=== PATIENT | male | born 1950 | race Caucasian/White ===

== ENCOUNTER 2019-12-05 13:52 | Inpatient (IN) | payer OTHER, MEDICARE ==
[~2019-12-05] VITALS: Ht 188 cm; Wt 122.9 kg
[2019-12-05 14:06] VITALS: BP_SYST 138
[2019-12-05 14:44] LABS: BASOPHILS # (AUTO) 0.1 K/uL (0.0-0.2); BASOPHILS % (AUTO) 0.5 % (0.0-2.0); EOSINOPHILS # (AUTO) 0.1 K/uL (0.0-0.4); EOSINOPHILS % (AUTO) 0.8 % (0.0-4.0); HEMATOCRIT 38.9 % (36-54); LYMPHOCYTES # (AUTO) 1.5 K/uL (1.0-5.5); LYMPHOCYTES % (AUTO) 10.9 % (20.5-51.5); MEAN CORPUSCULAR HEMOGLOBIN 22 pg (27-31); MEAN CORPUSCULAR HGB CONC 30 % (32-36); MEAN CORPUSCULAR VOLUME 72 fL (79.0-98.0); MONOCYTES % (AUTO) 7.3 % (1.7-9.3); NEUTROPHILS # (AUTO) 11.1 K/uL (1.8-7.7); NEUTROPHILS % (AUTO) 80.5 % (40.0-70.0); PLATELET COUNT (AUTO) 413 K/uL (130-430); RED BLOOD CELL COUNT(AUTO) 5.37 MIL/uL (4.2-6.2); RED CELL DISTRIBUTION WIDTH 20.8 % (9.0-15.0); WHITE BLOOD COUNT (AUTO) 13.8 K/uL (4.8-10.8)
[2019-12-05 14:47] LABS: HEMOGLOBIN 11.8 g/dL (14.0-18.0)
[2019-12-05 14:56] LABS: ANION GAP 15 (5-15); CALCIUM 8.5 mg/dL (8.4-11.0); CHLORIDE 99 mmol/L (98-107); CREATININE 0.97 mg/dL (0.55-1.30); GLUCOSE 112 mg/dL (70-99); POTASSIUM 3.7 mmol/L (3.5-5.1); SODIUM SERUM 136 mmol/L (136-145); UREA NITROGEN, BLOOD 20 mg/dL (8-21)
[2019-12-05 15:02] LABS: ALANINE AMINOTRANSFERASE 27 U/L (12-78); ALBUMIN 3.9 g/dL (3.4-4.8); ASPARTATE AMINOTRANSFERASE 20 U/L (10-37); TOTAL BILIRUBIN 0.9 mg/dL (0.0-1.0)
[2019-12-05 15:05] LABS: ACETAMINOPHEN < 1 ug/mL (1-30); ALCOHOL, BLOOD < 3 mg/dL (<10)
[2019-12-05 15:51] LABS: BILIRUBIN,URINE NEGATIVE (NEGATIVE); BLOOD, URINE 3+ (NEGATIVE); COLOR,URINE YELLOW (YELLOW); GLUCOSE,URINE NEGATIVE (NEGATIVE); KETONES,URINE 2+ (NEGATIVE); LEUKOCYTE ESTERASE ,URINE TRACE (NEGATIVE); NITRITE, URINE NEGATIVE (NEGATIVE); PH,URINE 5.5 (5.0-8.0); PROTEIN URINE 1+ (NEGATIVE)
[2019-12-05 16:01] LABS: CLARITY/URINE HAZY (CLEAR)
[2019-12-05 16:11] LABS: BACTERIA,URINE FEW /HPF (None Seen); RBC,URINE 50-80 /HPF (0-3)
[2019-12-05 16:12] LABS: MUCUS,URINE 1+ /LPF (None Seen)
[2019-12-05 16:14] LABS: BARBITURATE, URINE NEGATIVE (NEG <=200); METHAMPHETAMINES SCREEN,URINE NEGATIVE (NEG <=500); URINE AMPHETAMINE NEGATIVE (NEG <=500); URINE METHADONE NEGATIVE (NEG <=200)
[2019-12-05 16:15] LABS: BENZODIAZEPINE, URINE POSITIVE (NEG <=150); CANNABINOID, URINE NEGATIVE (NEG <=50); COCAINE, URINE NEGATIVE (NEG <=150); OPIATE, URINE POSITIVE (NEG <=100); PHENCYCLIDINE SCREEN,URINE NEGATIVE (NEG <=25); UR TRICYCLIC ANTIDEPRESSANTS NEGATIVE (NEG <=300); URINE OXYCODONE SCREEN NEGATIVE (NEG <=100); URINE PROPOXYPHENE SCREEN NEGATIVE (NEG <=300)
[2019-12-05] MEDS ORDERED: NS 500 ML IV ONE (16:45)
[2019-12-05] MEDS ORDERED: cefTRIAXone 1 GM IVPB PREMIX 50 ML IV ONE (16:45)
[2019-12-05] MEDS ORDERED: cefTRIAXone 1 GM in LIDOCAINE 1%, 20 ML MDV 2.1 ML IM ONE (17:00)
[2019-12-05] MEDS ORDERED: cefTRIAXone 1 GM VIAL IM ONE (17:00)
[2019-12-05] MEDS ORDERED: LORazepam 2 MG/ML VIAL IVP ONE (17:15)
[2019-12-05] MEDS ORDERED: ACET-2165 PO (17:43)
[2019-12-05] MEDS ORDERED: ALPR0.5T PO (17:43)
[2019-12-05] MEDS ORDERED: AMLO5TAB4 PO (17:43)
[2019-12-05] MEDS ORDERED: dulcolax suppository RC (17:46)
[2019-12-05 17:55] LABS: CHOLESTEROL 126 mg/dL (<200); HDL CHOLESTEROL 38 mg/dL (>45); LDL CHOLESTEROL 77 mg/dL (<100); TRIGLYCERIDES 60 mg/dL (30-150)
[2019-12-05] MEDS ORDERED: HYDR-4274 PO (18:16)
[2019-12-05] MEDS ORDERED: PRO40 PO (18:16)
[2019-12-05] MEDS ORDERED: SER25 PO (18:16)
[2019-12-05] MEDS ORDERED: APIX5TAB4 PO (18:16)
[2019-12-05] MEDS ORDERED: LACT10SO6 PO (18:16)
[2019-12-05] MEDS ORDERED: ASCO500T20 PO (18:16)
[2019-12-05] MEDS ORDERED: MOM PO (18:16)
[2019-12-05] MEDS ORDERED: NACL 0.9% 1,000 ML IV ONE (18:30)
[2019-12-05] MEDS ORDERED: MILK OF MAGNESIA 30 ML UDC PO PRN (19:30)
[2019-12-05] MEDS ORDERED: levETIRAcetam 1,000 MG IV BAG 100 ML IV ONE (19:30)
[2019-12-05] MEDS ORDERED: ACETAMINOPHEN 325 MG TABLET PO PRN (19:30)
[2019-12-05] MEDS ORDERED: LORazepam 2 MG/ML VIAL IVP PRN (19:30)
[2019-12-05 20:47] VITALS: BP_SYST 118
[2019-12-05] MEDS: ASCORBIC ACID 500 MG TABLET PO SCH (23:04)
[2019-12-05] MEDS: QUEtiapine FUMARATE 25 MG TABLET PO SCH (23:04)
[2019-12-05] MEDS: PANTOPRAZOLE SODIUM 40 MG TAB PO SCH (23:04)
[2019-12-06 00:44] VITALS: BP_SYST 130
[2019-12-06] MEDS: HYDROcodone/ACETAMIN 10-325 MG TAB PO PRN ×3 (05:55→22:11)
[2019-12-06 06:30] LABS: BASOPHILS % (AUTO) 0.4 % (0.0-2.0); EOSINOPHILS # (AUTO) 0.2 K/uL (0.0-0.4); EOSINOPHILS % (AUTO) 1.9 % (0.0-4.0); HEMATOCRIT 34.5 % (36-54); HEMOGLOBIN 10.5 g/dL (14.0-18.0); LYMPHOCYTES # (AUTO) 1.4 K/uL (1.0-5.5); LYMPHOCYTES % (AUTO) 13.6 % (20.5-51.5); MEAN CORPUSCULAR HEMOGLOBIN 22 pg (27-31); MEAN CORPUSCULAR HGB CONC 30 % (32-36); MEAN CORPUSCULAR VOLUME 72 fL (79.0-98.0); MONOCYTES # (AUTO) 0.7 K/uL (0.0-1.0); MONOCYTES % (AUTO) 6.8 % (1.7-9.3); NEUTROPHILS # (AUTO) 7.8 K/uL (1.8-7.7); NEUTROPHILS % (AUTO) 77.3 % (40.0-70.0); PLATELET COUNT (AUTO) 314 K/uL (130-430); RED CELL DISTRIBUTION WIDTH 20.6 % (9.0-15.0); WHITE BLOOD COUNT (AUTO) 10.1 K/uL (4.8-10.8)
[2019-12-06 08:55] LABS: ALANINE AMINOTRANSFERASE 22 U/L (12-78); ALBUMIN 3.2 g/dL (3.4-4.8); ANION GAP 12 (5-15); ASPARTATE AMINOTRANSFERASE 18 U/L (10-37); CALCIUM 8.3 mg/dL (8.4-11.0); CHLORIDE 101 mmol/L (98-107); CREATININE 0.78 mg/dL (0.55-1.30); GLUCOSE 93 mg/dL (70-99); POTASSIUM 3.5 mmol/L (3.5-5.1); SODIUM SERUM 136 mmol/L (136-145); THYROID STIMULATING HORMONE 1.12 uIu/mL (0.34-4.82); TOTAL BILIRUBIN 0.7 mg/dL (0.0-1.0); UREA NITROGEN, BLOOD 19 mg/dL (8-21)
[2019-12-06] MEDS: ASCORBIC ACID 500 MG TABLET PO SCH ×2 (10:27→20:27)
[2019-12-06] MEDS: PANTOPRAZOLE SODIUM 40 MG TAB PO SCH ×2 (10:27→20:28)
[2019-12-06] MEDS: amLODIPine BESYLATE 5 MG TABLET PO SCH ×2 (10:31→20:27)
[2019-12-06 12:00] VITALS: BP_SYST 140
[2019-12-06] MEDS: cefTRIAXone 1 GM in D5W 50 ML IV SCH (13:45)
[2019-12-06 17:23] VITALS: BP_SYST 131
[2019-12-06 20:00] VITALS: BP_SYST 136
[2019-12-06] MEDS: ALPRAZolam 0.25 MG TABLET PO PRN (20:28)
[2019-12-06] MEDS: QUEtiapine FUMARATE 25 MG TABLET PO SCH (20:28)
[2019-12-07 01:19] VITALS: BP_SYST 116
[2019-12-07] MEDS: HYDROcodone/ACETAMIN 10-325 MG TAB PO PRN ×3 (06:22→23:14)
[2019-12-07] MEDS: amLODIPine BESYLATE 5 MG TABLET PO SCH ×2 (08:52→21:43)
[2019-12-07] MEDS: PANTOPRAZOLE SODIUM 40 MG TAB PO SCH ×2 (08:52→21:42)
[2019-12-07] MEDS: clonazePAM 0.5 MG TABLET PO SCH ×2 (08:52→21:43)
[2019-12-07] MEDS: ASCORBIC ACID 500 MG TABLET PO SCH ×2 (08:52→21:42)
[2019-12-07 08:57] VITALS: BP_SYST 142
[2019-12-07] MEDS: ALPRAZolam 0.25 MG TABLET PO PRN (11:25)
[2019-12-07] MEDS: cefTRIAXone 1 GM in D5W 50 ML IV SCH (11:25)
[2019-12-07 12:15] VITALS: BP_SYST 144
[2019-12-07] MEDS ORDERED: MILK OF MAGNESIA 30 ML UDC PO ONE (12:45)
[2019-12-07] MEDS ORDERED: DOCUSATE SODIUM 250 MG CAPSULE PO ONE (12:45)
[2019-12-07 16:20] VITALS: BP_SYST 149
[2019-12-07] MEDS ORDERED: ACETAMINOPHEN 650 MG/20.3 ML UDC PO PRN (18:44)
[2019-12-07] MEDS ORDERED: DOCUSATE SODIUM 100 MG/10 ML UDC PO ONE (19:00)
[2019-12-07 20:00] VITALS: BP_SYST 120
[2019-12-07] MEDS ORDERED: QUEtiapine FUMARATE 25 MG TABLET PO SCH (21:00)
[2019-12-08 00:06] VITALS: BP_SYST 140
[2019-12-08 08:00] VITALS: BP_SYST 128
[2019-12-08] MEDS: clonazePAM 0.5 MG TABLET PO SCH ×2 (08:38→20:48)
[2019-12-08] MEDS: amLODIPine BESYLATE 5 MG TABLET PO SCH ×2 (08:38→20:49)
[2019-12-08] MEDS: PANTOPRAZOLE SODIUM 40 MG TAB PO SCH ×2 (08:38→20:48)
[2019-12-08] MEDS: ASCORBIC ACID 500 MG TABLET PO SCH ×2 (08:38→20:49)
[2019-12-08] MEDS: HYDROcodone/ACETAMIN 10-325 MG TAB PO PRN ×2 (08:39→16:53)
[2019-12-08] MEDS: QUEtiapine FUMARATE 25 MG TABLET PO SCH (08:40)
[2019-12-08] MEDS ORDERED: DOCUSATE SODIUM 100 MG/10 ML UDC PO SCH (09:00)
[2019-12-08] MEDS: cefTRIAXone 1 GM in D5W 50 ML IV SCH (12:23)
[2019-12-08 12:25] VITALS: BP_SYST 116
[2019-12-08] MEDS ORDERED: TAMSULOSIN HCL 0.4 MG CAP PO ONE (13:15)
[2019-12-08 16:20] VITALS: BP_SYST 137
[2019-12-08 20:00] VITALS: BP_SYST 117
[2019-12-08] MEDS: SENNOSIDES/DOCUSATE SODIUM 1 TAB TABLET(SENOKOT-S) PO SCH (20:54)
[2019-12-08] MEDS ORDERED: QUEtiapine FUMARATE 25 MG TABLET PO SCH (21:00)
[2019-12-08 23:20] VITALS: BP_SYST 114
[2019-12-09] MEDS: HYDROcodone/ACETAMIN 10-325 MG TAB PO PRN ×3 (01:37→18:35)
[2019-12-09] MEDS: ALPRAZolam 0.25 MG TABLET PO PRN (03:07)
[2019-12-09 07:55] VITALS: BP_SYST 123
[2019-12-09] MEDS: PANTOPRAZOLE SODIUM 40 MG TAB PO SCH ×2 (09:44→20:30)
[2019-12-09] MEDS: TAMSULOSIN HCL 0.4 MG CAP PO SCH (09:44)
[2019-12-09] MEDS: CYANOCOBALAMIN 1000 mCg TABLET PO SCH (09:44)
[2019-12-09] MEDS: clonazePAM 0.5 MG TABLET PO SCH ×2 (09:44→20:29)
[2019-12-09] MEDS: amLODIPine BESYLATE 5 MG TABLET PO SCH ×2 (09:45→20:30)
[2019-12-09] MEDS: ASCORBIC ACID 500 MG TABLET PO SCH ×2 (09:46→20:31)
[2019-12-09] MEDS: QUEtiapine FUMARATE 25 MG TABLET PO SCH ×2 (09:46→20:34)
[2019-12-09] MEDS: cefTRIAXone 1 GM in D5W 50 ML IV SCH (11:23)
[2019-12-09 12:48] VITALS: BP_SYST 105
[2019-12-09 16:53] VITALS: BP_SYST 120
[2019-12-09 20:00] VITALS: BP_SYST 131
[2019-12-09] MEDS: SENNOSIDES/DOCUSATE SODIUM 1 TAB TABLET(SENOKOT-S) PO SCH (20:30)
[2019-12-10 00:18] VITALS: BP_SYST 143
[2019-12-10] MEDS: ALPRAZolam 0.25 MG TABLET PO PRN (00:59)
[2019-12-10] MEDS: HYDROcodone/ACETAMIN 10-325 MG TAB PO PRN ×2 (06:16→16:55)
[2019-12-10] MEDS: PANTOPRAZOLE SODIUM 40 MG TAB PO SCH ×2 (07:55→21:24)
[2019-12-10] MEDS: ASCORBIC ACID 500 MG TABLET PO SCH ×2 (07:55→21:24)
[2019-12-10] MEDS: CYANOCOBALAMIN 1000 mCg TABLET PO SCH (07:55)
[2019-12-10] MEDS: TAMSULOSIN HCL 0.4 MG CAP PO SCH (07:55)
[2019-12-10] MEDS: QUEtiapine FUMARATE 25 MG TABLET PO SCH ×2 (07:55→21:25)
[2019-12-10] MEDS: clonazePAM 0.5 MG TABLET PO SCH ×2 (07:55→21:23)
[2019-12-10] MEDS: amLODIPine BESYLATE 5 MG TABLET PO SCH ×2 (08:00→21:24)
[2019-12-10 08:03] VITALS: BP_SYST 143
[2019-12-10] MEDS: cefTRIAXone 1 GM in D5W 50 ML IV SCH (11:50)
[2019-12-10 12:31] VITALS: BP_SYST 115
[2019-12-10 16:00] VITALS: BP_SYST 126
[2019-12-10 20:00] VITALS: BP_SYST 124
[2019-12-10] MEDS: SENNOSIDES/DOCUSATE SODIUM 1 TAB TABLET(SENOKOT-S) PO SCH (21:24)
[2019-12-11 00:02] VITALS: BP_SYST 123
[2019-12-11] MEDS: HYDROcodone/ACETAMIN 10-325 MG TAB PO PRN ×2 (06:27→14:45)
[2019-12-11 08:05] VITALS: BP_SYST 140
[2019-12-11] MEDS: clonazePAM 0.5 MG TABLET PO SCH ×2 (08:36→21:49)
[2019-12-11] MEDS: ASCORBIC ACID 500 MG TABLET PO SCH ×2 (08:36→21:49)
[2019-12-11] MEDS: TAMSULOSIN HCL 0.4 MG CAP PO SCH (08:36)
[2019-12-11] MEDS: CYANOCOBALAMIN 1000 mCg TABLET PO SCH (08:36)
[2019-12-11] MEDS: PANTOPRAZOLE SODIUM 40 MG TAB PO SCH ×2 (08:37→21:48)
[2019-12-11] MEDS: amLODIPine BESYLATE 5 MG TABLET PO SCH ×2 (08:37→21:48)
[2019-12-11] MEDS: QUEtiapine FUMARATE 25 MG TABLET PO SCH ×2 (08:37→21:47)
[2019-12-11] MEDS: cefTRIAXone 1 GM in D5W 50 ML IV SCH (11:05)
[2019-12-11 12:20] VITALS: BP_SYST 138
[2019-12-11] MEDS: ALPRAZolam 0.25 MG TABLET PO PRN (13:36)
[2019-12-11 16:20] VITALS: BP_SYST 138
[2019-12-11 19:55] VITALS: BP_SYST 143
[2019-12-11] MEDS: SENNOSIDES/DOCUSATE SODIUM 1 TAB TABLET(SENOKOT-S) PO SCH (21:49)
[2019-12-11 23:33] VITALS: BP_SYST 120
[2019-12-12] MEDS: HYDROcodone/ACETAMIN 10-325 MG TAB PO PRN ×3 (00:11→13:40)
[2019-12-12] MEDS: ALPRAZolam 0.25 MG TABLET PO PRN ×2 (01:44→13:41)
[2019-12-12 08:00] VITALS: BP_SYST 135
[2019-12-12] MEDS: amLODIPine BESYLATE 5 MG TABLET PO SCH (08:51)
[2019-12-12] MEDS: clonazePAM 0.5 MG TABLET PO SCH (08:52)
[2019-12-12] MEDS: PANTOPRAZOLE SODIUM 40 MG TAB PO SCH (08:52)
[2019-12-12] MEDS: TAMSULOSIN HCL 0.4 MG CAP PO SCH (08:53)
[2019-12-12] MEDS: QUEtiapine FUMARATE 25 MG TABLET PO SCH (08:54)
[2019-12-12] MEDS: ASCORBIC ACID 500 MG TABLET PO SCH (08:54)
[2019-12-12] MEDS ORDERED: DIVALPROEX SODIUM 250 MG TABLET(DEPAKOTE) PO SCH (09:00)
[2019-12-12] MEDS ORDERED: CYANOCOBALAMIN 1000 mCg TABLET PO SCH (09:00)
[2019-12-12 12:20] VITALS: BP_SYST 113
[2019-12-12 15:41] VITALS: BP_SYST 113
[2019-12-12 16:15] VITALS: BP_SYST 135
== END 2019-12-12 19:10 | DRG 101 ==
LOC: SED 13:52 → EEVIPCON 19:28 → STU 19:28 → SMU 12-07 22:34
PROVIDERS: ADMIT Internal Medicine; ATTEND Internal Medicine
DX: G40.909 Epilepsy, unspecified, not intractable, without status epilepticus (principal); N39.0 Urinary tract infection, site not specified; F41.9 Anxiety disorder, unspecified; F31.9 Bipolar disorder, unspecified; Z66 Do not resuscitate; Z51.5 Encounter for palliative care; Z96.649 Presence of unspecified artificial hip joint; Z96.653 Presence of artificial knee joint, bilateral; K21.9 Gastro-esophageal reflux disease without esophagitis; I10 Essential (primary) hypertension; R41.81 Age-related cognitive decline; G89.4 Chronic pain syndrome; B95.8 Unspecified staphylococcus as the cause of diseases classified elsewhere; Z79.899 Other long term (current) drug therapy; Z79.01 Long term (current) use of anticoagulants; Z87.891 Personal history of nicotine dependence; Z86.718 Personal history of other venous thrombosis and embolism
CPT/HCPCS: 36415; 70450-TC; 71045; 76770; 80053; 80061; 80307; 81000-TC; 82140-TC; 82607; 83036; 83735-TC; 84443-TC; 85025; 87081; 87086; 87186-TC; 93005; 96361; 96365; 96372; 96375; 97110-GP; 97116-GP; 97530-GP; 99285; G0378; G0480; G0481; G0482; J0696; J1953; J2001; J2060; J7050; J7060